=== PATIENT | male | born 1995 | race Caucasian/White ===

== ENCOUNTER 2017-02-25 19:13 | Emergency (ER) | payer MEDICAID, OTHER ==
[2017-02-25 19:30] VITALS: BP 114/69; PULSE 86; RESP 20; TEMP 98.2; O2SAT 99
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
== END 2017-02-25 19:50 | disposition home or self-care (01) ==
LOC: C.ER 19:13
DX: S09.90XA Unspecified injury of head, initial encounter (principal); V49.9XXA Car occupant (driver) (passenger) injured in unspecified traffic accident, initial encounter